=== PATIENT | female | born 1965 | race Caucasian/White ===

== ENCOUNTER 2022-05-17 16:42 | Emergency (ER) | payer SELFPAY ==
[~2022-05-17] VITALS: Ht 152.4 cm; Wt 90.7 kg
[2022-05-17] MEDS ORDERED: HYDROCODONE/APAP 5/325MG TABLET ONE (17:26)
[2022-05-17] MEDS ORDERED: HYDROCODONE/APAP 5/325MG TABLET PO ONE (17:30)
--- NOTE | 2022-05-17 17:50 | NUR ---
PATIENT TAKEN TO CT VIA [facility]
[2022-05-17] MEDS ORDERED: HYDR-3972 PO (19:18)
[2022-05-17 19:24] VITALS: BP 138/90
--- NOTE | 2022-05-17 19:24 | NUR ---
Patient discharged to home in stable condition. Written and verbal after care instructions given. Patient verbalizes understanding of instruction.
== END 2022-05-17 19:25 | disposition home or self-care (01) ==
LOC: ER 17:16
DX: S16.1XXA Strain of muscle, fascia and tendon at neck level, initial encounter (principal); S39.012A Strain of muscle, fascia and tendon of lower back, initial encounter; I10 Essential (primary) hypertension; J45.909 Unspecified asthma, uncomplicated; E03.9 Hypothyroidism, unspecified; Z88.8 Allergy status to other drugs, medicaments and biological substances; V89.2XXA Person injured in unspecified motor-vehicle accident, traffic, initial encounter; Y93.89 Activity, other specified; Y92.89 Other specified places as the place of occurrence of the external cause; Y99.8 Other external cause status
CPT/HCPCS: 72125-TC; 72131-TC